=== PATIENT | female | born 1970 | race Caucasian/White ===

== ENCOUNTER 2017-01-29 11:00 | Outpatient (CLI) | payer BC ==
[~2017-01-29 11:00] MED LIST: ENAL10TA; OCELLA; TOLTA4
== END 2017-01-29 11:42 | disposition home or self-care (01) ==
LOC: SLEEP 11:00
PROVIDERS: ATTEND Nurse Practitioner Family
DX: G47.33 Obstructive sleep apnea (adult) (pediatric) (principal)

== ENCOUNTER 2017-04-01 19:40 | Outpatient (CLI) | payer BC | END 2017-04-02 06:40 | disposition home or self-care (01) | LOC: SLEEP 19:40 | PROVIDERS: ATTEND Nurse Practitioner Family | DX: G47.33 Obstructive sleep apnea (adult) (pediatric) (principal); G47.61 Periodic limb movement disorder | CPT/HCPCS: 95811 ==

== ENCOUNTER 2017-06-03 11:13 | Outpatient (RCR) | payer BC | END 2017-06-15 | disposition home or self-care (01) | LOC: CARD 11:13 | PROVIDERS: ATTEND Internal Medicine Cardiovascular Disease | DX: R00.2 Palpitations (principal); R06.02 Shortness of breath; G47.33 Obstructive sleep apnea (adult) (pediatric); E78.2 Mixed hyperlipidemia; I10 Essential (primary) hypertension; Z83.3 Family history of diabetes mellitus; Z82.3 Family history of stroke; Z82.49 Family history of ischemic heart disease and other diseases of the circulatory system | CPT/HCPCS: 93225; 93226 ==

== ENCOUNTER → 2017-06-05 | Outpatient (CLI) | payer BC | LOC: CARD 11:43 | PROVIDERS: ATTEND Internal Medicine Cardiovascular Disease | DX: R00.2 Palpitations; Z82.3 Family history of stroke; Z83.3 Family history of diabetes mellitus; I10 Essential (primary) hypertension; G47.33 Obstructive sleep apnea (adult) (pediatric); Z82.49 Family history of ischemic heart disease and other diseases of the circulatory system; R06.02 Shortness of breath; E78.2 Mixed hyperlipidemia | CPT/HCPCS: 93017; 93306 ==

== ENCOUNTER → 2020-05-02 | Outpatient (CLI) | payer BC ==
[~2020-05-02] VITALS: Ht 166 cm; Wt 101.0 kg
[~2020-05-02] MED LIST changes: +CATHETER FLUSH 10 ML SYR IV PRN; +REGADENOSON 0.4 MG/5 ML SYR (LEXISCAN) IV ONE
[2020-05-02 09:06] VITALS: BP 134/78
--- NOTE | 2020-05-02 11:57 | Cardiology Stress Test Report ---
Stress Test Report Date of Procedure/Referring: Date of Procedure: May 02, 2020 PCP Flaco Medina MD Admitting Physician Ju Mckeon MD Indications: Hypertension, chest pain Baseline Heart Rate: 80 Baseline Blood Pressure: Blood Pressure Systolic: 134 Blood Pressure Diastolic: 78 Baseline Vitals Vital Signs Date Time Temp Pulse Resp B/P (MAP) Pulse Ox O2 Delivery O2 Flow Rate FiO2 05/02/20 09:06 77 18 134/78 (96) 98 Room Air Baseline EKG: Baseline EKG: normal sinus rhythm Summary After explaining the procedure to the patient, she signed a consent and then brought to the stress nuclear laboratory. Patient received 0.4 mg Lexiscan for stress test, ECG, heart rate and blood pressure were monitored continuously. Resting and stress dose of radio tracer were injected, imaging was acquired and reviewed in short axis, horizontal long axis and vertical long axis views. TID: 1.04 SSS: 4 SDS: 4 EF: 70 1. Patient tolerated Lexiscan well 2. Breast attenuation with mild decrease uptake at the mid to apical anterior wall with subtle reversibility, probably secondary to breast attenuation, no significant ischemia or infarction on SPECT images 3. Normal left ventricular size, EF 70 percent, no segmental wall motion abnormalities FLACO MEDINA MD May 02, 2020 11:57
== END ==
LOC: CARD 07:00
PROVIDERS: ATTEND Internal Medicine Cardiovascular Disease
DX: I10 Essential (primary) hypertension (principal); E78.2 Mixed hyperlipidemia; Q24.9 Congenital malformation of heart, unspecified; R06.02 Shortness of breath; R07.9 Chest pain, unspecified
CPT/HCPCS: 78452; 93017; A9502

== ENCOUNTER → 2020-05-04 | Outpatient (CLI) | payer BC ==
[~2020-05-04] MED LIST changes: -CATHETER FLUSH 10 ML SYR IV PRN; -REGADENOSON 0.4 MG/5 ML SYR (LEXISCAN) IV ONE
== END ==
LOC: CARD 08:45
PROVIDERS: ATTEND Internal Medicine Cardiovascular Disease
DX: I10 Essential (primary) hypertension (principal); E78.2 Mixed hyperlipidemia; Q24.9 Congenital malformation of heart, unspecified
CPT/HCPCS: 93306

== ENCOUNTER 2020-05-13 05:41 | Outpatient (RCR) | payer BC ==
[~2020-05-13] VITALS: Ht 165.1 cm; Wt 101.4 kg
[~2020-05-13 05:41] MED LIST changes: +ATOR10TA66 PO; +BACI1TAB3 PO; +DICL50TA6 PO; +DULO30CA3 PO; +GABA300C PO; +METO50TA7 PO; +OMEG100032 PO
== END 2020-05-13 11:35 | disposition home or self-care (01) ==
LOC: PREOP 05:41
PROVIDERS: ATTEND Surgery
DX: Z01.812 Encounter for preprocedural laboratory examination (principal); Z20.828 Contact with and (suspected) exposure to other viral communicable diseases
CPT/HCPCS: 87635

== ENCOUNTER 2020-05-17 10:25 | Day surgery (SDC) | payer BC ==
[~2020-05-17] VITALS: Ht 165.1 cm; Wt 101.4 kg
[2020-05-17] MEDS ORDERED: LACTATED RINGERS 1,000 ML IV ONE (10:36)
[2020-05-17] MEDS ORDERED: LACTATED RINGERS 1,000 ML IV STA (10:38)
[2020-05-17] MEDS ORDERED: HURRICAINE EXT TUBE (BENZOCAINE) XX PRN (10:45)
[2020-05-17] MEDS ORDERED: PROPOFOL INJECTION 50 ML IV ONE (10:46)
[2020-05-17] MEDS ORDERED: MIDAZOLAM 2 MG/2 ML (VERSED) VIAL ONE (10:47)
[2020-05-17 10:53] VITALS: BP 153/85
[2020-05-17] MEDS ORDERED: HURRICAINE EXT TUBE (BENZOCAINE) ONE (11:00)
--- NOTE | 2020-05-17 11:06 | Progress Note-Pre Operative ---
Pre-Operative Progress Note H&P Reviewed The H&P was reviewed, patient examined and no changes noted. Date Seen by Provider: May 17, 2020 Time Seen by Provider: 11: Date H&P Reviewed: May 17, 2020 Time H&P Reviewed: 11:05 Pre-Operative Diagnosis: chest pain, gerd CYNTHIA ELLIS DO May 17, 2020 11:06
[2020-05-17 11:20] VITALS: BP 114/55
[2020-05-17 11:25] VITALS: BP 121/57
--- NOTE | 2020-05-17 11:27 | Progress Note-Post Operative ---
Post-Operative Progess Note Surgeon (s)/Robotics Mechanic (s) Surgeon CYNTHIA ELLIS DO Robotics Mechanic: na Pre-Operative Diagnosis chest pain, gerd Post-Operative Diagnosis duodenitis Procedure & Operative Findings Date of Procedure 05/17/20 Procedure Performed/Findings EGD with biopsies Anesthesia Type per PROCUREMENT CLERK Estimated Blood Loss Estimated blood loss (mL): scant Specimens/Packing Specimens Removed antrum, duodenum, ge CYNTHIA ELLIS DO May 17, 2020 11:27
[2020-05-17] MEDS ORDERED: SUCR1TAB36 PO (11:28)
[2020-05-17] MEDS ORDERED: PANT40TA2 PO (11:28)
--- NOTE | 2020-05-17 11:29 | Discharge Inst-Simple/Standard ---
Discharge Inst-Standard Discharge Medications New, Converted or Re-Newed RX: Transmitted to Pharmacy Patient Instructions/Follow Up Plan of Care/Instructions/FU: 2-3 weeks Ajay Activity as Tolerated: Yes Discharge Diet: Regular Diet CYNTHIA ELLIS DO May 17, 2020 11:29
--- NOTE | 2020-05-17 11:37 | Anesthesia-General Post-Op ---
MAC Patient Condition Mental Status/LOC: Same as Preop Cardiovascular: Satisfactory Nausea/Vomiting: Absent Respiratory: Satisfactory Pain: Controlled Complications: Absent Post Op Complications Complications None Follow Up Care/Instructions Patient Instructions None needed. Anesthesiology Discharge Order Discharge Order Patient is doing well, no complaints, stable vital signs, no apparent adverse anesthesia problems. No complications reported per nursing. LUIS HANCOCK CRNA May 17, 2020 11:37
[2020-05-17 11:50] VITALS: BP 137/79
[2020-05-17 12:05] VITALS: BP 137/79
--- NOTE | 2020-05-17 13:43 | OPERATIVE REPORT ---
DATE OF SERVICE: 05/17/2020 PREOPERATIVE DIAGNOSES: Chest pain and gastroesophageal reflux disease. POSTOPERATIVE DIAGNOSIS: Duodenitis. PROCEDURE: EGD with biopsies. SURGEON: Cynthia Moss DO ANESTHESIA: Per LEGAL COUNSEL. ESTIMATED BLOOD LOSS: Scant. COMPLICATIONS: None. SPECIMENS: Antrum duodenum and GE junction. INDICATIONS: The patient is a 49-year-old female with chest pain and GERD symptoms. She understands risks and benefits of procedure and wished to proceed with procedure. Consent was signed in the chart. DESCRIPTION OF PROCEDURE: The patient was taken to the endoscopy suite, placed in left lateral recumbent position. Timeout was performed. Scope was inserted in mouth, down the esophagus, stomach and into the duodenum. The duodenum had no polyps or masses. There was erythematous changes consistent with duodenitis. Biopsy was obtained. Scope was then slowly retracted back into the stomach where it was further insufflated. No polyps, masses or ulcerations, no erythematous changes. Biopsy of the antrum was obtained. Scope was retroflexed noting no other pathology. Scope was returned to its normal position, slowly withdrawn to the distal esophagus. Biopsy of the GE junction was obtained. There were no polyps, masses or ulcerations. Scope was slowly retracted back until completely removed. The patient tolerated procedure well without any complications, was taken to recovery room in stable condition. RECOMMENDATIONS: The patient started on Protonix 40 mg daily and Carafate 1 gram four times a day. The patient will follow up in the office in about 2 to 3 weeks to discuss pathology results and see how her symptoms are doing with these medicine changes. Any issues before that be seen at that time. Job ID: [id number] DocumentID: [id number] Dictated Date: 05/17/2020 11:33:55 Field Sales Trainer Date: 05/17/2020 13:43:20 Dictated By: CYNTHIA MOSS DO
== END 2020-05-17 12:05 | disposition home or self-care (01) ==
LOC: ENDO 10:25
PROVIDERS: ATTEND Surgery
DX: K29.80 Duodenitis without bleeding (principal); K21.0 Gastro-esophageal reflux disease with esophagitis; I10 Essential (primary) hypertension; M79.7 Fibromyalgia; E78.2 Mixed hyperlipidemia; F32.9 Major depressive disorder, single episode, unspecified; F41.9 Anxiety disorder, unspecified; K31.89 Other diseases of stomach and duodenum; I20.9 Angina pectoris, unspecified; K50.90 Crohn's disease, unspecified, without complications; I69.354 Hemiplegia and hemiparesis following cerebral infarction affecting left non-dominant side; G47.33 Obstructive sleep apnea (adult) (pediatric); Z87.891 Personal history of nicotine dependence; Z79.899 Other long term (current) drug therapy